=== PATIENT | male | born 1990 | race African-American/Black ===

== ENCOUNTER 2021-02-24 04:17 | Emergency (ER) | payer SELFPAY ==
[~2021-02-24] VITALS: Ht 175.3 cm; Wt 107.0 kg
[2021-02-24 05:30] LABS: BASOPHILS % 0.5 % (0.0-2.0); HEMOGLOBIN. 12.5 g/dL (14.0-18.0); LYMPHOCYTES % 15.6 % (20.0-50.0); MEAN CORPUSCULAR HEMOGLOBIN 28.2 pg (28.0-32.0); MEAN CORPUSCULAR VOLUME 88.1 fL (80.0-94.0); MEAN PLATELET VOLUME 8.4 fl (7.4-10.4); MONOCYTES % 5.5 % (2.0-8.0); NEUTROPHILS % 78.4 % (40.0-76.0); PLATELET 303 x1000/uL (130-400); RED BLOOD CELL COUNT 4.43 mill/uL (4.7-6.1); RED CELL DISTRIBUTION WIDTH 13.4 % (11.6-14.6)
[2021-02-24 05:33] LABS: CHLORIDE 110 mEq/L (98-107)
[2021-02-24 05:37] LABS: ETHANOL BLOOD 125 mg/dL
[2021-02-24 12:00] VITALS: BP 126/74
== END 2021-02-24 13:51 | disposition home or self-care (01) ==
LOC: ER 04:17
DX: R45.851 Suicidal ideations (principal); F14.10 Cocaine abuse, uncomplicated
CPT/HCPCS: 36415; 80053; 80307; 80320; 80329; 85025; 93005; 99285; Z7610; G0480